=== PATIENT | female | born 1995 | race African-American/Black ===

== ENCOUNTER 2016-11-20 21:45 | Emergency (ER) | payer OTHER ==
[2016-11-20 22:16] VITALS: BP 137/60; PULSE 70; TEMP 98.1; BMI 46.9
[2016-11-21] MEDS ORDERED: LIDOCAINE HCL 1%, 10 MG/ML (50 mL VIAL) INF ONE (01:35)
[2016-11-21] MEDS ORDERED: SULFAMETHOXAZOLE/TRIMETHOPRIM 800MG/160MG D.S. TABLET PO ONE (02:41)
[2016-11-21] MEDS ORDERED: CEPHALEXIN MONOHYDRATE 500 MG CAPSULE (UD) PO ONE (02:41)
--- NOTE | 2016-11-21 02:49 | PDOC ---
History of Present Illness - General Chief Complaint: Abscess Boil Stated Complaint: ABSCESS BOIL Time Seen by Provider: 11/20/16 23:37 History Source: Patient Exam Limitations: No Limitations - History of Present Illness Initial Comments: 11/21/16 02:42 21yo Female patient presents to ED c/o abscess to her back. Patient reports symptoms began yesterday. She reported applying warm compress with no relief. Patient denies any other complaints at this time. Denies fever. Timing/Duration: reports: yesterday Severity: Yes: moderate Location: reports: torso Respiratory Risk Factors: reports: no cause identified Associated Symptoms: denies: denies symptoms, blisters, change in skin texture, edema, fever, flushing, headache, hives, jaundice, malaise, nasal congestion, numbness, pallor, paresthesia, petechiae, rash, sore throat, swelling/mass/lumps , tingling, other Past History - Travel Traveled outside of the country in the last 30 days: No Close contact w/someone who was outside of country & ill: No - Past Medical History Allergies/Adverse Reactions: Allergies Allergy/AdvReac Type Severity Reaction Status Date / Time No Known Allergies Allergy Verified 11/20/16 22:12 Home Medications: Ambulatory Orders Cetirizine HCl [Zyrtec -] 10 mg PO DAILY 11/20/16 Cephalexin Monohydrate [Keflex -] 500 mg PO BID #20 capsule 11/21/16 Sulfamethoxazole/Trimethoprim [Bactrim Ds Tablet] 1 each PO BID #20 tablet 11/21 Tramadol HCl [Ultram] 50 mg PO Q8H PRN #12 tablet MDD 3 tabs 11/21/16 Asthma: Yes - Reproductive History (#): 0 Para: 0 - Immunization History Immunization Up to Date: Yes - Psycho/Social/Smoking Cessation Hx Anxiety: No Suicidal Ideation: No Smoking Status: No Smoking History: Never smoked Have you smoked in the past 12 months: No Number of Cigarettes Smoked Daily: 0 Cigars Per Day: 0 Information on smoking cessation initiated: No Hx Alcohol Use: No Drug/Substance Use Hx: No Substance Use Type: Marijuana Review of Systems - Review of Systems Able to Perform ROS?: Yes Is the patient limited Faroese proficient: No Constitutional: No: Fever Integumentary: Yes: Other (Abscess.) All Other Systems: Reviewed and Negative *Physical Exam - Vital Signs Last Vital Signs Temp Pulse Resp BP Pulse Ox 98.1 F 70 16 137/60 100 11/20/16 22:13 11/20/16 22:13 11/20/16 22:13 11/20/16 22:13 11/20/16 22:13 - Physical Exam General Appearance: Yes: Nourished, Appropriately Dressed, Mild Distress. No: Apparent Distress, Moderate Distress, Severe Distress Neck: positive: Trachea midline, Normal Thyroid, Supple. negative: Rigid, Stridor, Lymphadenopathy (R), Lymphadenopathy (L) Respiratory/Chest: positive: Lungs Clear, Normal Breath Sounds. negative: Respiratory Distress, Accessory Muscle Use, Labored Respiration, Rapid RR, Stridor, Wheezing Cardiovascular: positive: Regular Rhythm, Regular Rate Gastrointestinal/Abdominal: positive: Normal Bowel Sounds, Soft. negative: Distended, Guarding, Rebound, Tenderness, Hernia, Mass Musculoskeletal: positive: Normal Inspection. negative: CVA Tenderness Extremity: positive: Normal Capillary Refill, Normal Inspection, Normal Range of Motion. negative: Pedal Edema, Swelling, Calf Tenderness, Erythema, Inflammation Integumentary: positive: Normal Color, Dry, Warm, Other (Abscess to Left mid back. Mild erythema, swelling, fluctant.) Neurologic: positive: vamp liner II-XII NML intact, Fully Oriented, Alert, Normal Mood/ Affect, Normal Response, Motor Strength 5/5 Procedures - Incision and Drainage I&D Site: Left: Torso (Back) Betadine cleansed: Yes Anesthesia: 1% Lidocaine Volume(ml): 5 Blade Size: 11 Attempts: 1 Plain Packing: No Complications: none Dressing: Yes (Sterile dressing applied with tape.) ED Treatment Course - Medications Given in the ED: ED Medications Discontinued Medications Generic Name Dose Route Start Last Admin Trade Name Freq PRN Reason Stop Dose Admin Lidocaine HCl 5 ml 11/21/16 01:35 11/21/16 01:40 Xylocaine 1% INF 11/21/16 01:36 5 ml ONCE ONE Administration *DC/Admit/Observation/Transfer Diagnosis at time of Disposition: Abscess - Discharge Dispostion Disposition: HOME Condition at time of disposition: Improved Admit: No - Prescriptions Prescriptions: Sulfamethoxazole/Trimethoprim [Bactrim Ds Tablet] 1 each PO BID #20 tablet Cephalexin Monohydrate [Keflex -] 500 mg PO BID #20 capsule Tramadol HCl [Ultram] 50 mg PO Q8H PRN #12 tablet MDD 3 tabs PRN Reason: Severe Pain - Patient Instructions Printed Discharge Instructions: DI for Incision and Drainage of a Skin Abscess Additional Instructions: FOLLOW UP WITH YOUR DOCTOR FOR FURTHER EVALUATION. TAKE MEDICATIONS PRESCRIBED. DO NOT DRIVE, DRINK ALCOHOL, OR OPERATE HEAVY MACHINERY WHILE TAKING TRAMADOL. RETURN IF SYMPTOMS WORSEN OR ANY CONCERNS FOR FURTHER EVALUATION. TAKE ANTIBIOTICS ON FULL STOMACH. KEFLEX 500MG- ANTIBIOTICS BACTRIM DS- ANTIBIOTICS TRAMADOL- PAIN Print Language: DANISH - Post Discharge Activity Work/School Note: Back to Work
[2016-11-21] MEDS ORDERED: SULFAMETHOXAZOLE/TRIMETHOPRIM 800MG/160MG D.S. TABLET ONE (03:04)
[2016-11-21] MEDS ORDERED: CEPHALEXIN MONOHYDRATE 250 MG CAPSULE (FP) ONE (03:04)
== END 2016-11-21 03:12 | disposition home or self-care (01) ==
LOC: JER 21:45 → JERFT 21:45 → JER 11-21 03:12
PROC: 0H96XZZ Drainage of Back Skin, External Approach (ICD-10-PCS; principal; 2016-11-20)
DX: L02.212 Cutaneous abscess of back [any part, except buttock and flank] (principal); J45.909 Unspecified asthma, uncomplicated
CPT/HCPCS: 99281-25

== ENCOUNTER 2018-03-10 13:01 | Emergency (ER) | payer OTHER ==
[2018-03-10 13:22] VITALS: BP 147/78; PULSE 104; TEMP 98.6; BMI 46.0
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
[2018-03-10] MEDS ORDERED: IBUPROFEN 400 MG TABLET (FP) PO ONE ×2 (14:59→15:00)
== END 2018-03-10 16:17 | disposition home or self-care (01) ==
LOC: JERFT 13:01
DX: S43.402A Unspecified sprain of left shoulder joint, initial encounter (principal); X58.XXXA Exposure to other specified factors, initial encounter; Y93.89 Activity, other specified; Y92.9 Unspecified place or not applicable
CPT/HCPCS: 73030-TC-LT-FY; 99281-25

== ENCOUNTER 2018-04-21 12:26 | Emergency (ER) | payer OTHER ==
[2018-04-21 12:47] VITALS: TEMP 98; BMI 46.0
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
[2018-04-21] MEDS ORDERED: METOCLOPRAMIDE HCL INJECTION 10 MG/2 ML VIAL IVPUSH ONE (13:22)
[2018-04-21] MEDS ORDERED: ACETAMINOPHEN 325 MG TABLET (FP) PO ONE (13:34)
[2018-04-21] MEDS ORDERED: diphenhydrAMINE HCL 25 MG CAPSULE (FP) PO ONE ×2 (13:34→14:42)
[2018-04-21] MEDS ORDERED: ACETAMINOPHEN 325 MG TABLET (FP) ONE (14:41)
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
[2018-04-21 15:50] VITALS: BP 140/84; PULSE 72
== END 2018-04-21 15:50 | disposition home or self-care (01) ==
LOC: JER 12:26
DX: T42.6X1A Poisoning by other antiepileptic and sedative-hypnotic drugs, accidental (unintentional), initial encounter (principal); G44.40 Drug-induced headache, not elsewhere classified, not intractable; Y92.038 Other place in apartment as the place of occurrence of the external cause
CPT/HCPCS: 70450-TC; 99282-25

== ENCOUNTER 2019-05-01 13:08 | Emergency (ER) | payer OTHER ==
[2019-05-01 13:28] VITALS: PULSE 86; TEMP 98.1; BMI 69.0
--- NOTE | 2019-05-01 14:26 | PDOC ---
History of Present Illness - General Chief Complaint: Chest Pain Stated Complaint: CHEST PAIN Time Seen by Provider: 05/01/19 14:24 - History of Present Illness Initial Comments: 05/01/19 14:25 CHIEF COMPLAINT: chest pain HISTORY OF PRESENT ILLNESS: 24 yo morbidly obese female with hx of b/l upper extremity paralysis presents to ED with midsternal chest pain x 1 hour. Patient describes the chest pain as a pressure and that is worse with inspiration, but she denies any SOB. Patient denies coughing or any URI symptoms in the past 2 weeks. Denies recent travel, use of hormones/OCPs, recent surgeries. Patient states her last LMP was in February but that she has irregular periods, denies any chance of . Denies any tobacco use or fam hx of early cardiac disease. No recent travel or sick contacts. PAST MEDICAL HISTORY: Denies past medical history FAMILY HISTORY: Denies SOCIAL HISTORY: Denies tobacco, alcohol, illicit drug use. SURGICAL HISTORY: Denies ALLERGIES: No known drug allergies REVIEW OF SYSTEMS General/Constitutional: Denies fever or chills. Denies weakness, weight change. HEENT: Denies change in vision. Denies ear pain or discharge. Denies sore throat. Cardiovascular: Chest pressure x 1 hour. Respiratory: Denies cough, wheezing, or hemoptysis. Gastrointestinal: Denies nausea, vomiting, diarrhea or constipation. Denies rectal bleeding. Genitourinary: Denies dysuria, frequency, or change in urination. Musculoskeletal: Denies joint or muscle swelling or pain. Denies neck or back pain. Skin and breasts: Denies rash or easy bruising. Neurologic: Denies headache, vertigo, loss of consciousness, or loss of sensation. Psychiatric: Denies depression or anxiety. PHYSICAL EXAM General Appearance: Well-appearing, appropriately dressed. No apparent distress , no intoxication. HEENT: EOMI, PERRLA, normal ENT inspection, normal voice, TMs normal, pharynx normal. No conjunctival pallor. No photophobia, scleral icterus. Neck: Supple. Trachea midline. No tenderness, rigidity, carotid bruit, stridor , lymphadenopathy, or thyromegaly. Respiratory/Chest: Reproducible midsternal chest tenderness. Lungs CTAB. No shortness of breath, chest tenderness, respiratory distress, accessory muscle use. No crackles, rales, rhonchi, stridor, wheezing, dullness Cardiovascular: RRR. S1, S2. No JVD, murmur, bradycardia, tachycardia. Vascular Pulses: Dorsalis-Pedis (R): 2+, Dorsalis-Pedis (L): 2+ Gastrointestinal/Abdominal: Normal bowel sounds. Abdomen soft, non-distended. No tenderness or rebound tenderness. No organomegaly, pulsatile mass, guarding , hernia, hepatomegaly, splenomegaly. Lymphatic: No adenopathy, tenderness. Musculoskeletal/Extremities: Normal inspection. FROM of all extremities, normal capillary refill. Pelvis Stable. No CVA tenderness. No tenderness to extremities, pedal edema, swelling, erythema or deformity. Integumentary: Appropriate color, dry, warm. No cyanosis, erythema, jaundice or rash Neurologic: automotive manager II-XII intact. Fully oriented, alert. Appropriate mood/affect. Motor strength 5/5. No appreciable EOM palsy, facial droop or sensory deficit. 05/01/19 16:27 Past History - Past Medical History Allergies/Adverse Reactions: Allergies Allergy/AdvReac Type Severity Reaction Status Date / Time No Known Allergies Allergy Verified 05/01/19 13:24 Home Medications: Ambulatory Orders Baclofen 10 mg PO TID 03/10/18 Duloxetine HCl 60 mg PO DAILY 03/10/18 Gabapentin 400 mg PO TID 03/10/18 Pregabalin [Lyrica] 100 mg PO TID 03/10/18 Asthma: Yes CVA: No (BUE paralysis) COPD: No DVT: No Dementia: No - Reproductive History (#): 0 Para: 0 - Immunization History Immunization Up to Date: Yes - Psycho Social/Smoking Cessation Hx Smoking Status: No Smoking History: Never smoked Have you smoked in the past 12 months: No Number of Cigarettes Smoked Daily: 0 Cigars Per Day: 0 Hx Alcohol Use: No Drug/Substance Use Hx: No Substance Use Type: Marijuana *Physical Exam - Vital Signs Last Vital Signs Temp Pulse Resp BP Pulse Ox 98.1 F 86 20 141/89 100 05/01/19 13:24 05/01/19 20:35 05/01/19 20:35 05/01/19 20:35 05/01/19 20:35 ED Treatment Course - LABORATORY CBC & Chemistry Diagram: 05/01/19 16:00 05/01/19 15:05 - ADDITIONAL ORDERS Additional order review: 05/01/19 16:00 RBC 5.30 H MCV 72.3 L MCHC 31.9 L RDW 17.3 H MPV 9.1 Neutrophils % 62.8 Lymphocytes % 27.7 D Monocytes % 7.1 Eosinophils % 1.2 Basophils % 1.2 - RADIOLOGY Radiology Studies Ordered: Category Date Time Status CHEST PA & LAT [RAD] Stat Radiology 05/01/19 14:26 Completed Medical Decision Making - Medical Decision Making 05/01/19 14:39 24 yo morbidly obese female presents to ED with midsternal chest pain x 1 hour. -EKG done in triage -labs -CXR 05/01/19 16:46 Case discussed with oncoming provider NAVA Perez. Pending D-dimer. Discharge - Discharge Information Problems reviewed: Yes Clinical Impression/Diagnosis: Chest pain Qualifiers: Chest pain type: unspecified Qualified Code(s): R07.9 - Chest pain, unspecified Condition: Improved Disposition: HOME - Follow up/Referral Referrals: Patria Martinez MD [Primary Care Provider] - - Patient Discharge Instructions Patient Printed Discharge Instructions: DI for Atypical Chest Pain Additional Instructions: Your Discharge Instructions: You must call primary care physician within 24 hours to arrange follow-up. Return to the Emergency Department with any new, persistent or worsening symptoms, for fever, chills, SOB, dizziness or any other concerning changes that may occur. - Post Discharge Activity
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
[2019-05-01 16:18] LABS: BASO % 1.2 % (0-2.0); EOS % 1.2 % (0-4.5); HEMATOCRIT 38.3 % (32.4-45.2); HEMOGLOBIN 12.2 GM/dL (10.7-15.3); LYMPH % 27.7 % (8-40); MCH 23.1 pg (25.7-33.7); MCHC 31.9 g/dl (32.0-36.0); MEAN CELL VOLUME 72.3 fl (80-96); MEAN PLT VOLUME 9.1 fl (7.5-11.1); MONO % 7.1 % (3.8-10.2); NEUT % 62.8 % (42.8-82.8); PLATELET COUNT 326 K/MM3 (134-434); RDW 17.3 % (11.6-15.6); WHITE BLOOD COUNT 15.8 K/mm3 (4.0-10.0)
[2019-05-01 16:39] LABS: ALBUMIN 3.3 g/dl (3.4-5.0); ALK PHOS 93 U/L (45-117); ANION GAP 6 MMOL/L (8-16); BILIRUBIN,TOTAL 0.4 mg/dL (0.2-1); BLOOD UREA NITROGEN 11.4 mg/dL (7-18); CALCIUM 8.7 mg/dL (8.5-10.1); CHLORIDE 102 mmol/L (98-107); CO2 28 mmol/L (21-32); CREATININE 0.6 mg/dL (0.55-1.3); GLUCOSE,RANDOM 118 mg/dL (74-106); MAGNESIUM 2.3 mg/dL (1.8-2.4); SGOT/AST 12 U/L (15-37); SGPT/ALT 13 U/L (13-61); SODIUM 137 mmol/L (136-145); TOT PROT 7.1 g/dl (6.4-8.2)
--- NOTE | 2019-05-01 20:20 | PDOC ---
*Physical Exam - Vital Signs Last Vital Signs Temp Pulse Resp BP Pulse Ox 98.1 F 86 16 151/94 100 05/01/19 13:24 05/01/19 13:24 05/01/19 13:24 05/01/19 13:24 05/01/19 13:24 ED Treatment Course - LABORATORY CBC & Chemistry Diagram: 05/01/19 16:00 05/01/19 15:05 - ADDITIONAL ORDERS Additional order review: Laboratory Results 05/01/19 05/01/19 16:57 15:05 D-Dimer 515 H Sodium 137 Potassium 4.0 Chloride 102 Carbon Dioxide 28 Anion Gap 6 L BUN 11.4 Creatinine 0.6 Est GFR (CKD-EPI)AfAm 146.83 Est GFR (CKD-EPI)NonAf 126.68 Random Glucose 118 H Calcium 8.7 Magnesium 2.3 Total Bilirubin 0.4 AST 12 L ALT 13 Alkaline Phosphatase 93 Creatine Kinase 121 Troponin I < 0.02 Total Protein 7.1 Albumin 3.3 L 05/01/19 16:00 RBC 5.30 H MCV 72.3 L MCHC 31.9 L RDW 17.3 H MPV 9.1 Neutrophils % 62.8 Lymphocytes % 27.7 D Monocytes % 7.1 Eosinophils % 1.2 Basophils % 1.2 - RADIOLOGY Radiology Studies Ordered: Category Date Time Status CHEST CTA [CT] Stat CT Scan 05/01/19 17:35 Taken Medical Decision Making - Medical Decision Making Patient endorsed to me to follow d-dimer noted to be 515 cxr with cardiomegly and left base obscured will sent for CTA 05/01/19 20:09 Patient Full Name: ALEKSEY HEREDIA Patient Accession No: [id number] Patient : 1995 Reason for Exam: pe Referring Physician: Patient Name: GIOVANNA RYDER THIS IS A PRELIMINARY REPORT FROM IMAGING PROVIDER NETWORK ANALYST EXAM: CTA chest with contrast IMAGES:[id number] DATE OF EXAM: 2019-05-01 19:00:26 REASON FOR EXAM: Pulmonary embolism COMPARISON: None Findings: Limited exam due to habitus and CT artifacts created by the patient's adjacent upper extremities. There is also poor opacification of the pulmonary arteries with contrast which further limits evaluation of the pulmonary arteries. No obvious pulmonary embolism, but small pulmonary emboli in the subsegmental pulmonary arteries are not excludable. No evidence for aortic dissection. Mild cardiomegaly without significant pericardial effusion. Atelectatic changes in the lungs. No focal consolidation, pleural effusion, or pneumothorax. Mild pleural thickening in the left base. Mild thyromegaly. Small left renal calculus. One or more of the following dose reduction techniques were used: automated exposure control, adjustment of the mA and/or kV according to patient size, use of iterative reconstructive technique. THIS DOCUMENT HAS BEEN ELECTRONICALLY SIGNED Jorje Rice MD 05/01/2019 20:03 RED Hathaway Please call Imaging Banquet Supervisor [phone] ([phone]) with questions. INTERPRETING RADIOLOGIST: Jorje Rice MD Electronically Signed: May 01, 2019 08:05PM RED I discussed the physical exam findings, ancillary test results and final diagnoses with the patient. I answered all of the patient's questions. The patient was satisfied with the care received and felt comfortable with the discharge plan and treatment plan. The Patient agrees to follow up with the primary care physician within 24-72 hours. Discharge - Discharge Information Problems reviewed: Yes Clinical Impression/Diagnosis: Chest pain Qualifiers: Chest pain type: unspecified Qualified Code(s): R07.9 - Chest pain, unspecified Disposition: HOME - Follow up/Referral Referrals: Patria Martinez MD [Primary Care Provider] - - Patient Discharge Instructions Patient Printed Discharge Instructions: DI for Atypical Chest Pain Additional Instructions: Your Discharge Instructions: You must call primary care physician within 24 hours to arrange follow-up. Return to the Emergency Department with any new, persistent or worsening symptoms, for fever, chills, SOB, dizziness or any other concerning changes that may occur. - Post Discharge Activity
[2019-05-01 20:37] VITALS: BP 141/89
--- NOTE | 2019-05-02 10:53 | EKG ---
Test Reason : Blood Pressure : / mmHG Vent. Rate : 079 BPM Atrial Rate : 079 BPM P-R Int : 192 ms QRS Dur : 092 ms QT Int : 434 ms P-R-T Axes : 039 -09 012 degrees QTc Int : 497 ms NORMAL SINUS RHYTHM MODERATE VOLTAGE CRITERIA FOR LVH, MAY BE NORMAL VARIANT T WAVE ABNORMALITY, CONSIDER ANTERIOR ISCHEMIA ABNORMAL ECG NO PREVIOUS ECGS AVAILABLE Confirmed by SAMINA ALLISON MD ([id number]) on 05/02/2019 10:52:49 AM Referred By: Confirmed By:SAMINA ALLISON MD
== END 2019-05-01 20:36 | disposition home or self-care (01) ==
LOC: JER 13:08
DX: R07.9 Chest pain, unspecified (principal); E66.01 Morbid (severe) obesity due to excess calories; Z68.44 Body mass index [BMI] 60.0-69.9, adult; G83.21 Monoplegia of upper limb affecting right dominant side; G83.22 Monoplegia of upper limb affecting left dominant side; V89.2XXS Person injured in unspecified motor-vehicle accident, traffic, sequela
CPT/HCPCS: 36415; 71046-TC-FY; 71275-TC; 80053; 82550; 83735; 84484; 85025; 85379; 93005; 93010; 99283-25

== ENCOUNTER 2021-06-18 11:55 | Emergency (ER) | payer OTHER ==
[2021-06-18 12:17] VITALS: TEMP 98; BMI 49.1
[2021-06-18] MEDS ORDERED: ACETAMINOPHEN 1000 MG/100 ML VIAL IVPB ONE (13:14)
[2021-06-18] MEDS ORDERED: MAG HYDROX/AL HYDROX/SIMETH 30 ML UNIT-DOSE CUP PO ONE (13:14)
[2021-06-18] MEDS ORDERED: FAMOTIDINE 20 MG/50 ML IVPB 20 MG/50 ML MG IVPB ONE ×2 (13:14→13:22)
[2021-06-18] MEDS ORDERED: SODIUM CHLORIDE 0.9% 500 ML INFUS.BAG IV ONE (13:14)
[2021-06-18] MEDS ORDERED: LIDOCAINE VISCOUS 2% ORAL/TOP 15 ML UNIT-DOSE CUP MM ONE (13:14)
[2021-06-18] MEDS ORDERED: LIDOCAINE VISCOUS 2% ORAL/TOP 15 ML UNIT-DOSE CUP ONE (13:21)
[2021-06-18] MEDS ORDERED: ACETAMINOPHEN INJECTION 100 ML IVPB ONE (13:21)
[2021-06-18] MEDS ORDERED: MAG HYDROX/AL HYDROX/SIMETH 30 ML UNIT-DOSE CUP ONE (13:22)
[2021-06-18 14:01] LABS: BASO % 0.7 % (0-2.0); EOS % 0.3 % (0-4.5); HEMATOCRIT 29.4 % (32.4-45.2); HEMOGLOBIN 9.4 GM/dL (10.7-15.3); LYMPH % 25.5 % (8-40); MCH 21.2 pg (25.7-33.7); MCHC 31.8 g/dl (32.0-36.0); MEAN CELL VOLUME 66.7 fl (80-96); MEAN PLT VOLUME 8.9 fl (7.5-11.1); MONO % 6.3 % (3.8-10.2); NEUT % 67.2 % (42.8-82.8); PLATELET COUNT 314 10^3/uL (134-434); RDW 19.8 % (11.6-15.6); WHITE BLOOD COUNT 10.4 K/mm3 (4.0-10.0)
[2021-06-18 14:13] LABS: ALBUMIN 2.5 g/dl (3.4-5.0); BLOOD UREA NITROGEN 8.4 mg/dL (7-18); CALCIUM 7.5 mg/dL (8.5-10.1)
[2021-06-18 14:14] LABS: MAGNESIUM 2.2 mg/dL (1.8-2.4)
[2021-06-18 14:16] LABS: CREATININE 0.5 mg/dL (0.55-1.3)
[2021-06-18 14:18] LABS: BILIRUBIN,TOTAL 0.4 mg/dL (0.2-1); TOT PROT 6.3 g/dl (6.4-8.2)
[2021-06-18 14:23] LABS: ANISOCYTOSIS 3+; MACROCYTOSIS 0; PLATELET ESTIMATE NORMAL
[2021-06-18] MEDS ORDERED: POTASSIUM CHLORIDE TABS 20 MEQ TABLET.ER (FP) PO ONE ×2 (16:11→16:46)
[2021-06-18 18:11] VITALS: BP 145/88; PULSE 58
== END 2021-06-18 18:18 | disposition home or self-care (01) ==
LOC: JER 11:55
PROC: 3E0333Z Introduction of Anti-inflammatory into Peripheral Vein, Percutaneous Approach (ICD-10-PCS; principal; 2021-06-18)
PROC: 3E033GC Introduction of Other Therapeutic Substance into Peripheral Vein, Percutaneous Approach (ICD-10-PCS; 2021-06-18)
DX: R11.2 Nausea with vomiting, unspecified (principal)
CPT/HCPCS: 36415; 76705-TC; 80053; 83690; 83735; 84703; 85025; 99284-25; C9803; J0131; U0003; U0005

== ENCOUNTER 2022-05-22 22:18 | Emergency (ER) | payer OTHER ==
[2022-05-22 22:51] VITALS: TEMP 98.1; BMI 47.8
[2022-05-23] MEDS ORDERED: METOCLOPRAMIDE HCL INJECTION 10 MG/2 ML VIAL IVPUSH ONE (00:01)
[2022-05-23] MEDS ORDERED: LACTATED RINGERS SOLUTION 1000 ML INFUS.BAG IV ONE (00:01)
[2022-05-23] MEDS ORDERED: METOCLOPRAMIDE HCL INJECTION 10 MG/2 ML VIAL ONE (00:30)
[2022-05-23 01:19] LABS: EOS % 1.4 % (0-4.5); HEMATOCRIT 33.6 % (32.4-45.2); HEMOGLOBIN 10.7 GM/dL (10.7-15.3); LYMPH % 31.1 % (8-40); MCH 21.5 pg (25.7-33.7); MEAN CELL VOLUME 67.2 fl (80-96); MEAN PLT VOLUME 8.9 fl (7.5-11.1); MONO % 10.7 % (3.8-10.2); NEUT % 55.8 % (42.8-82.8); PLATELET COUNT 326 10^3/uL (134-434); RDW 19.6 % (11.6-15.6); WHITE BLOOD COUNT 9.9 K/mm3 (4.0-10.0)
[2022-05-23 01:25] LABS: INR 0.97 (0.83-1.09); PROTHROMBIN TIME (PATIENT) 11.1 SEC (9.7-13.0)
[2022-05-23 01:28] LABS: ACTIVATED PTT 30.7 SECONDS (25.2-36.5)
[2022-05-23 01:33] LABS: CALCIUM 8.8 mg/dL (8.5-10.1)
[2022-05-23 01:34] LABS: ALBUMIN 3.3 g/dl (3.4-5.0); BLOOD UREA NITROGEN 13.2 mg/dL (7-18)
[2022-05-23 01:37] LABS: CREATININE 0.7 mg/dL (0.55-1.3)
[2022-05-23 01:39] LABS: BILIRUBIN,TOTAL 0.3 mg/dL (0.2-1); TOT PROT 7.2 g/dl (6.4-8.2)
[2022-05-23 03:59] VITALS: BP 126/72; PULSE 71; RESP 18
[2022-05-23 05:28] LABS: ANISOCYTOSIS 3+; MACROCYTOSIS 1+
== END 2022-05-23 03:59 | disposition home or self-care (01) ==
LOC: JER 22:18
PROC: 3E033GC Introduction of Other Therapeutic Substance into Peripheral Vein, Percutaneous Approach (ICD-10-PCS; principal; 2022-05-22)
DX: R51.9 Headache, unspecified (principal)
CPT/HCPCS: 36415; 70450-TC; 80053; 84703; 85025; 85610; 85730; 86850; 86900; 86901; 99284-25

== ENCOUNTER 2022-12-16 20:17 | Emergency (ER) | payer OTHER ==
[2022-12-16 20:23] VITALS: TEMP 98; BMI 49.6
[2022-12-16] MEDS ORDERED: CYCLOBENZAPRINE HCL 10 MG TABLET (FP) PO ONE (21:31)
[2022-12-16] MEDS ORDERED: KETOROLAC TROMETHAMINE 30 MG/1 ML VIAL IM ONE (21:31)
[2022-12-16] MEDS ORDERED: ACETAMINOPHEN 500 MG TABLET (FP) PO ONE (21:32)
[2022-12-16] MEDS ORDERED: CYCLOBENZAPRINE HCL 10 MG TABLET (FP) ONE (21:35)
[2022-12-16] MEDS ORDERED: ACETAMINOPHEN 500 MG TABLET (FP) ONE (21:35)
[2022-12-16] MEDS ORDERED: KETOROLAC TROMETHAMINE 30 MG/1 ML VIAL ONE (21:41)
[2022-12-17 00:43] VITALS: BP 118/61; PULSE 69; RESP 14
== END 2022-12-17 01:58 | disposition home or self-care (01) ==
LOC: JERFT 20:17 → JER 20:17
PROC: 3E0233Z Introduction of Anti-inflammatory into Muscle, Percutaneous Approach (ICD-10-PCS; principal; 2022-12-16)
DX: M54.6 Pain in thoracic spine (principal); M54.50 Low back pain, unspecified; V43.62XA Car passenger injured in collision with other type car in traffic accident, initial encounter
CPT/HCPCS: 72128-TC; 72131-TC; 84703; 99284-25

== ENCOUNTER 2024-01-22 19:25 | Emergency (ER) | payer OTHER ==
[2024-01-22 19:34] VITALS: BP 109/73; PULSE 111; RESP 18; TEMP 98.9; BMI 48.6
[2024-01-22] MEDS ORDERED: ACETAMINOPHEN INJECTION 100 ML IVPB ONE (21:18)
[2024-01-22] MEDS ORDERED: ONDANSETRON 4 MG/2 ML VIAL ONE (21:18)
[2024-01-22] MEDS ORDERED: FAMOTIDINE 20 MG/50 ML IVPB 20 MG/50 ML MG IVPB ONE (21:18)
[2024-01-22 21:22] LABS: BASO % 0.6 % (0-2.0); EOS % 0.4 % (0-4.5); HEMATOCRIT 30.1 % (32.4-45.2); HEMOGLOBIN 9.3 GM/dL (10.7-15.3); LYMPH % 16.7 % (8-40); MCHC 30.9 g/dl (32.0-36.0); MEAN CELL VOLUME 63.4 fl (80-96); MEAN PLT VOLUME 8.2 fl (7.5-11.1); MONO % 5.8 % (3.8-10.2); NEUT % 76.5 % (42.8-82.8); PLATELET COUNT 406 10^3/uL (134-434); RBC 4.75 M/mm3 (3.60-5.2); RDW 18.5 % (11.6-15.6); WHITE BLOOD COUNT 19.6 K/mm3 (4.0-10.0)
[2024-01-22 21:26] LABS: MCH 19.6 pg (25.7-33.7)
[2024-01-22] MEDS: SODIUM CHLORIDE 0.9% 500 ML INFUS.BAG IV ONE (21:26)
[2024-01-22] MEDS: FAMOTIDINE 20 MG/50 ML IVPB 20 MG/50 ML MG IVPB ONE (21:26)
[2024-01-22] MEDS: ACETAMINOPHEN 1000 MG/100 ML BAG IVPB ONE (21:26)
[2024-01-22] MEDS: ONDANSETRON 4 MG/2 ML VIAL IVPUSH ONE (21:26)
[2024-01-22 21:50] LABS: POTASSIUM 4.7 mmol/L (3.5-5.1)
[2024-01-22 21:52] LABS: ALBUMIN 3.3 g/dl (3.4-5.0); BLOOD UREA NITROGEN 8.8 mg/dL (7-18); CALCIUM 8.3 mg/dL (8.5-10.1)
[2024-01-22 21:56] LABS: CREATININE 0.6 mg/dL (0.55-1.3)
[2024-01-22 21:57] LABS: TOT PROT 7.9 g/dl (6.4-8.2)
[2024-01-22 21:58] LABS: BILIRUBIN,TOTAL 1.1 mg/dL (0.2-1)
[2024-01-22 22:16] LABS: ANISOCYTOSIS 2+; MACROCYTOSIS 0; OVALOCYTE 1+
[2024-01-22 23:49] LABS: EPI CELLS 24 /uL (0-25.1); HYALINE CASTS 0 /uL (0-3.1); PH,URINE 7.5 (5.0-8.0); URINE APPEARANCE CLEAR; URINE BACTERIA 1033 /uL (0-1359); URINE BILIRUBIN NEGATIVE (NEGATIVE); URINE COLOR YELLOW; URINE GLUCOSE (UA) NEGATIVE (NEGATIVE); URINE KETONE NEGATIVE (NEGATIVE); URINE LEUK ESTERASE TRACE (NEGATIVE); URINE NITRITE NEGATIVE (NEGATIVE); URINE PROTEIN NEGATIVE (NEGATIVE); URINE WBC 13 /uL (0-25.8)
== END 2024-01-23 03:04 | disposition home or self-care (01) ==
LOC: JER 19:25
PROC: 3E033NZ Introduction of Analgesics, Hypnotics, Sedatives into Peripheral Vein, Percutaneous Approach (ICD-10-PCS; principal; 2024-01-22)
PROC: 3E033GC Introduction of Other Therapeutic Substance into Peripheral Vein, Percutaneous Approach (ICD-10-PCS; 2024-01-22)
PROC: 3E033GC Introduction of Other Therapeutic Substance into Peripheral Vein, Percutaneous Approach (ICD-10-PCS; 2024-01-22)
DX: R11.2 Nausea with vomiting, unspecified (principal); R10.13 Epigastric pain; K29.70 Gastritis, unspecified, without bleeding; Z20.822 Contact with and (suspected) exposure to COVID-19
CPT/HCPCS: 0241U-QW; 36415; 74177-TC; 76705-TC; 80053; 81003; 83690; 84703; 85025; 87086; 99285-25; J0131

== ENCOUNTER 2024-03-27 16:24 | Emergency (ER) | payer OTHER ==
[2024-03-27 16:34] VITALS: BP 120/84; PULSE 94; RESP 20; TEMP 98.3; BMI 50.5
[2024-03-27] MEDS ORDERED: IBUPROFEN 600 MG TABLET (FP) PO ONE (17:48)
[2024-03-27] MEDS: IBUPROFEN 600 MG TABLET (FP) PO ONE (17:50)
== END 2024-03-27 18:05 | disposition home or self-care (01) ==
LOC: JERFT 16:24
DX: H66.92 Otitis media, unspecified, left ear (principal); H60.92 Unspecified otitis externa, left ear; H92.02 Otalgia, left ear
CPT/HCPCS: 99283-25